=== PATIENT | female | born 2000 | race Caucasian/White ===

== ENCOUNTER 2021-10-21 13:31 | Emergency (ER) | payer SELFPAY ==
[~2021-10-21] VITALS: Ht 165.1 cm; Wt 52.0 kg
[2021-10-21 13:37] VITALS: BP 125/58
== END 2021-10-21 14:09 | disposition left against medical advice (07) ==
LOC: ER 13:50
DX: Z53.21 Procedure and treatment not carried out due to patient leaving prior to being seen by health care provider (principal); F41.9 Anxiety disorder, unspecified; F32.9 Major depressive disorder, single episode, unspecified; F90.9 Attention-deficit hyperactivity disorder, unspecified type